=== PATIENT | female | born 1970 | race Caucasian/White ===

== ENCOUNTER 2020-11-12 07:09 | Inpatient (IN) ==
[2020-11-12] MEDS ORDERED: PHENYTOIN INJ 1,000 MG in SODIUM CHLORIDE 0.9% 100 ML IV STA (07:25)
[2020-11-12 07:35] LABS: Basophils # 0.1 10*3/uL (0.0-0.2); Basophils % 0.4 % (0.0-0.8); Eosinophils % 0.1 % (0.00-10.9); Hematocrit 31.1 VOL% (35.7-47.0); Hemoglobin 10.6 GM/DL (12.0-16.0); Immature Granulocytes % 8.2 %; Immature Granulocytes Absolute 2.19 #; Lymphocytes # 2.3 10*3/uL (1.4-4.0); Lymphocytes % 8.4 % (21.3-54.2); Mean Corpuscular HGB Conc 34.1 GM/DL (32-36); Mean Corpuscular Volume 92.6 FL (87-102); Mean Platelet Volume 8.7 FL (9.6-12.0); Monocytes % 4.4 % (1.7-12.7); Neutrophils % 78.5 % (38.7-73.9); Platelet Count 303 T/CUMM (130-400); Red Blood Count 3.36 MC/CUMM (3.8-5.5); White Blood Count 26.9 T/CUMM (4-12)
[2020-11-12 07:57] LABS: Band Neutrophils 5 % (0-10); Eosinophils 1 % (0-10); Lymphocytes 12 % (20-55); Platelet Estimate Adequate; Segmented Neutrophils 78 % (50-85); Total Cells Counted 100
[2020-11-12 08:02] LABS: Albumin 3.5 G/DL (3.4-5.0); Bilirubin,Total 0.4 MG/DL (0.2-1.0); Calcium 7.8 MG/DL (8.5-10.1); Osmolality,Calculated 252.6 MOS/KG (273-304); Potassium 3.5 MMOL/L (3.5-5.1); Total Protein 6.3 G/DL (6.4-8.2)
[2020-11-12 08:12] LABS: Amorphous Crystals,Urine Occasional /HPF (Few); Bacteria,Urine Occasional /HPF (Few); Bilirubin,Urine Negative (Negative); Blood, Urine Small mg/dL (Negative); Glucose,Urine (UA) Negative (Negative); Ketones,Urine Negative (Negative); Mucus,Urine Occasional /LPF (Occasional); Nitrite,Urine Negative (Negative); Protein,Urine 30 MG/DL; RBC,Urine <1 /HPF (0-4); Squamous Epithelial Cell,Urine Occasional /HPF (0-10); Urine Appearance CLEAR (Clear); Urine Color Straw (Yellow); Urine Specific Gravity 1.012 (1.001-1.035); Urine Urobilinogen < 2.0 EU/DL (0.2-1.0)
[2020-11-12 08:15] LABS: Barbiturates Screen,Urine Negative (Negative); Benzodiazepines Screen,Urine Positive (Negative); Cannabinoid Screen,Urine Negative (Negative); Opiate Screen,Urine Negative (Negative); Phencyclidine Screen,Urine Negative (Negative)
[2020-11-12] MEDS ORDERED: DOCUSATE SODIUM 100 MG CAPSULE PO PRN (08:57)
[2020-11-12] MEDS ORDERED: PROMETHAZINE 25 MG/1 ML VIAL IV PRN (08:57)
[2020-11-12] MEDS ORDERED: DEXTROSE 50% 25 GM/50 ML VIAL IV PRN (08:57)
[2020-11-12] MEDS ORDERED: GLUCAGON 1 MG VIAL IM PRN (08:57)
[2020-11-12] MEDS ORDERED: LACTULOSE 20 GM/30 ML UDCUP PO PRN (08:57)
[2020-11-12] MEDS ORDERED: ONDANSETRON 4 MG/2 ML VIAL IV PRN (08:57)
[2020-11-12] MEDS ORDERED: SODIUM CHLORIDE 0.9% 1,000 ML IV SCH (09:00)
[2020-11-12] MEDS ORDERED: MAGNESIUM SULF RIDER 2 GM/50 ML PREMIX IV PRN (11:07)
[2020-11-12] MEDS ORDERED: MAGNESIUM SULF RIDER 4 GM/100 ML PREMIX IV PRN (11:07)
[2020-11-12] MEDS: ENOXAPARIN 40 MG/0.4 ML SYRINGE SUBCUT SCH (11:55)
[2020-11-12] MEDS ORDERED: PHENYTOIN 100 MG/2 ML VIAL IV SCH (14:00)
[2020-11-12] MEDS ORDERED: LORazepam 2 MG/1 ML VIAL IV PRN (14:28)
[2020-11-12] MEDS: PHENYTOIN ER 100 MG CAPSULE PO SCH (20:40)
[2020-11-13 07:15] LABS: Alanine Aminotransferase 46 U/L (13-56); Alkaline Phosphatase 79 U/L (45-117); Aspartate Amino Transferase 24 U/L (0-37); Bilirubin,Direct < 0.100 MG/DL (0.0-0.20); Bilirubin,Indirect 0.8 MG/DL (0.0-1.0); Total Protein 5.5 G/DL (6.4-8.2)
[2020-11-13 07:16] LABS: Calcium 8.2 MG/DL (8.5-10.1); Thyroid Stimulating Hormone 0.801 uIU/ml (0.358-3.74)
[2020-11-13 08:58] LABS: Basophils % 0.2 % (0.0-0.8); Eosinophils % 0.2 % (0.00-10.9); Hematocrit 27.9 VOL% (35.7-47.0); Hemoglobin 9.5 GM/DL (12.0-16.0); Immature Granulocytes % 1.6 %; Immature Granulocytes Absolute 0.08 #; Lymphocytes # 0.6 10*3/uL (1.4-4.0); Lymphocytes % 12.2 % (21.3-54.2); Mean Corpuscular HGB Conc 34.1 GM/DL (32-36); Mean Corpuscular Volume 91.2 FL (87-102); Mean Platelet Volume 8.7 FL (9.6-12.0); Monocytes % 5.5 % (1.7-12.7); Neutrophils % 80.3 % (38.7-73.9); Red Blood Count 3.06 MC/CUMM (3.8-5.5); Red Cell Distribution Width 13.2 % (9.3-17.3)
[2020-11-13 08:59] LABS: Platelet Count 133 T/CUMM (130-400); White Blood Count 4.9 T/CUMM (4-12)
[2020-11-13] MEDS ORDERED: OLANZapine 2.5 MG TABLET PO SCH (09:00)
[2020-11-13] MEDS: PHENYTOIN ER 100 MG CAPSULE PO SCH (10:24)
[2020-11-13] MEDS: PANTOPRAZOLE 40 MG TABLET PO SCH (10:49)
[2020-11-13] MEDS: CHOLECALCIFEROL 1,000 UNIT TABLET PO SCH (10:49)
[2020-11-13] MEDS: ENOXAPARIN 40 MG/0.4 ML SYRINGE SUBCUT SCH (10:50)
[2020-11-13] MEDS ORDERED: HEPARIN LOCK FLUSH 500 UNIT/5 ML SYRINGE IV ONE (16:06)
[2020-11-13] MEDS: levETIRAcetam 500 MG TABLET PO SCH (20:55)
[2020-11-14 07:12] LABS: Basophils % 0.8 % (0.0-0.8); Eosinophils % 0.6 % (0.00-10.9); Hematocrit 27.9 VOL% (35.7-47.0); Hemoglobin 9.5 GM/DL (12.0-16.0); Immature Granulocytes Absolute 0.07 #; Lymphocytes # 0.6 10*3/uL (1.4-4.0); Lymphocytes % 16.1 % (21.3-54.2); Mean Corpuscular HGB Conc 34.1 GM/DL (32-36); Mean Corpuscular Volume 90.9 FL (87-102); Mean Platelet Volume 8.6 FL (9.6-12.0); Monocytes % 3.1 % (1.7-12.7); Neutrophils % 77.4 % (38.7-73.9); Platelet Count 156 T/CUMM (130-400); Red Blood Count 3.07 MC/CUMM (3.8-5.5); Red Cell Distribution Width 13.1 % (9.3-17.3); White Blood Count 3.5 T/CUMM (4-12)
[2020-11-14 07:28] LABS: Calcium 8.7 MG/DL (8.5-10.1); Potassium 4.1 MMOL/L (3.5-5.1)
[2020-11-14 07:47] LABS: Hypochromasia 1+; Lymphocytes 14 % (20-55); Microcytosis 1+; Ovalocytes Slight; Platelet Estimate Adequate; Segmented Neutrophils 84 % (50-85); Total Cells Counted 100
[2020-11-14 09:56] VITALS: BP 109/71
[2020-11-14] MEDS: levETIRAcetam 500 MG TABLET PO SCH (10:00)
[2020-11-14] MEDS: ENOXAPARIN 40 MG/0.4 ML SYRINGE SUBCUT SCH (10:00)
[2020-11-14] MEDS: PANTOPRAZOLE 40 MG TABLET PO SCH (10:00)
[2020-11-14] MEDS: CHOLECALCIFEROL 1,000 UNIT TABLET PO SCH (10:00)
== END 2020-11-14 10:35 | disposition home or self-care (01) | DRG 101 ==
LOC: EDUNIT# → EDBD → N.ED 07:09 → N.EDINP 08:57 → N.4E 15:30
PROVIDERS: ADMIT Hospitalist; ATTEND Hospitalist